=== PATIENT | male | born 1975 | race Caucasian/White ===

== ENCOUNTER 2017-08-03 18:51 | Inpatient (IN) | payer BC ==
[~2017-08-03] VITALS: Ht 180.3 cm; Wt 116.1 kg
[~2017-08-03 18:51] MED LIST: [UNRECOGNIZED DRUG - CODE] PO
[2017-08-03 19:53] LABS: BASOPHILS # (AUTO) 0.1 /CMM (0.0-0.2); BASOPHILS % (AUTO) 0.3 % (0.0-2.0); EOSINOPHILS # (AUTO) 0.1 /CMM (0.0-0.7); EOSINOPHILS % (AUTO) 0.4 % (0.0-6.0); HEMATOCRIT 38 % (39-51); HEMOGLOBIN 12.3 g/dL (13.5-17.5); LYMPHOCYTES # (AUTO) 3.5 /CMM (0.8-4.8); LYMPHOCYTES % (AUTO) 14.4 % (20.0-44.0); MEAN CORPUSCULAR HEMOGLOBIN 21 PG (26.0-33.0); MEAN CORPUSCULAR HGB CONC 33 g/dl (31.0-36.0); MEAN CORPUSCULAR VOLUME 63 fL (80-96); MONOCYTES # (AUTO) 1.4 /CMM (0.1-1.30); MONOCYTES % (AUTO) 5.8 % (2.0-12.0); NEUTROPHILS # (AUTO) 19.4 /CMM (1.8-8.9); NEUTROPHILS % (AUTO) 79.1 % (43.0-81.0); PLATELET COUNT (AUTO) 170 /CMM (150-450); RDW COEFFICIENT OF VARIATION 14.8 (11.5-15.0); WHITE BLOOD COUNT (AUTO) 24.5 K/uL (4.3-11.0)
[2017-08-03 19:58] LABS: APPEARANCE,URINE Cloudy (CLEAR); BILIRUBIN,URINE MODERATE (NEGATIVE); BLOOD, URINE Moderate Ery/uL (NEGATIVE); COLOR,URINE Other (YELLOW); KETONES,URINE 40 (NEGATIVE); LEUKOCYTE ESTERASE ,URINE Negative (NEGATIVE); NITRITE, URINE Positive (NEGATIVE); PROTEIN,URINE >=300 mg/dl (NEGATIVE); UGLUCOSE Negative (NEGATIVE)
[2017-08-03 19:59] LABS: CALCIUM, SERUM 9.2 mg/dL (8.5-10.1); CREATININE 1.2 mg/dL (0.6-1.3)
[2017-08-03] MEDS ORDERED: IV NS 0.9% 1,000 ML BAG IV ONE (20:00)
[2017-08-03 20:05] LABS: ALBUMIN 3.6 g/dL (3.4-5.0); BILIRUBIN,DIRECT 0.3 mg/dL (0.0-0.2); BILIRUBIN,TOTAL 1.1 mg/dL (0.2-1.0); TOTAL PROTEIN, SERUM 8.1 g/dL (6.4-8.2)
[2017-08-03 20:07] LABS: BACTERIA,URINE 2+ /HPF (None Seen); RBC,URINE 21-50 /HPF (0-2); SQUAMOUS EPITHELIAL CELL,UR Few /HPF (None Seen)
[2017-08-03] MEDS ORDERED: PIPERACILLIN /TAZOBACTAM 3.375 G in IV D5W 50 ML IV ONE (20:30)
[2017-08-03] MEDS ORDERED: PIPERACILLIN /TAZOBACTAM 3.375 G VIAL IV ONE (20:46)
[2017-08-03 20:47] LABS: EOSINOPHILS % (MANUAL) 2 % (0-4); LYMPHOCYTES % (MANUAL) 23 % (16-48); MONOCYTES % (MANUAL) 9 % (0-11.0); NEUTROPHILS % (MANUAL) 66 (42-76)
[2017-08-03] MEDS ORDERED: MAGNESIUM HYDROXIDE 30 ML UDC PO PRN (21:30)
[2017-08-03] MEDS ORDERED: MORPHINE SULFATE INJ 2 MG/ML DISP.SYRIN IV PRN (21:30)
[2017-08-03] MEDS ORDERED: LEVETIRACETAM (500MG) 500 MG in IV NS 0.9% 100 ML IV SCH (21:30)
[2017-08-03] MEDS ORDERED: MAG HYDROX/AL HYDROX/SIMETH 30 ML UDC PO PRN (21:30)
[2017-08-03] MEDS ORDERED: ONDANSETRON HCL/PF 4 MG/2 ML VIAL IVP PRN (21:30)
[2017-08-03] MEDS ORDERED: ACETAMINOPHEN 650 MG/SUPP.RECT RC PRN (21:30)
[2017-08-03 23:15] VITALS: BP 118/77
[2017-08-03] MEDS: IV NS 0.9% 1,000 ML IV PRN (23:49)
[2017-08-04] MEDS ORDERED: LEVETIRACETAM (500MG) 500 MG/5 ML VIAL IV ONE (00:08)
[2017-08-04] MEDS: ACETAMINOPHEN 325 MG TABLET PO PRN ×4 (03:36→21:38)
[2017-08-04 04:00] VITALS: BP 124/67
[2017-08-04] MEDS ORDERED: PIPERACILLIN /TAZOBACTAM 3.375 G VIAL IV ONE (04:14)
[2017-08-04] MEDS ORDERED: PIPERACILLIN /TAZOBACTAM 3.375 G in IV D5W 100 ML IV SCH (05:00)
[2017-08-04 07:24] LABS: CREATININE 0.9 mg/dL (0.6-1.3); MAGNESIUM 1.6 mg/dL (1.8-2.4); PHOSPHORUS 2.7 mg/dL (2.5-4.9); POTASSIUM 3.8 mmol/L (3.5-5.1)
[2017-08-04 07:25] LABS: EOSINOPHILS % (AUTO) 0.1 % (0.0-6.0); HEMATOCRIT 32 % (39-51); HEMOGLOBIN 10.2 g/dL (13.5-17.5); LYMPHOCYTES % (AUTO) 10.7 % (20.0-44.0); MEAN CORPUSCULAR HEMOGLOBIN 21 PG (26.0-33.0); MEAN CORPUSCULAR HGB CONC 32 g/dl (31.0-36.0); MEAN CORPUSCULAR VOLUME 64 fL (80-96); MONOCYTES # (AUTO) 0.7 /CMM (0.1-1.30); MONOCYTES % (AUTO) 3.7 % (2.0-12.0); NEUTROPHILS # (AUTO) 15.7 /CMM (1.8-8.9); NEUTROPHILS % (AUTO) 85.5 % (43.0-81.0); PLATELET COUNT (AUTO) 170 /CMM (150-450); RDW COEFFICIENT OF VARIATION 16.2 (11.5-15.0); RED BLOOD CELL COUNT(AUTO) 4.93 MIL/uL (4.5-6.0); WHITE BLOOD COUNT (AUTO) 18.4 K/uL (4.3-11.0)
[2017-08-04 08:00] VITALS: BP 122/70
[2017-08-04] MEDS ORDERED: LEVE500T9 PO (08:41)
[2017-08-04] MEDS: PANTOPRAZOLE 40 MG VIAL IV SCH (08:57)
[2017-08-04] MEDS ORDERED: LEVETIRACETAM (250 MG) 250 MG TABLET PO SCH (09:00)
[2017-08-04] MEDS: KEPPRA 500 MG PO SCH ×2 (09:15→20:37)
[2017-08-04] MEDS: Magnesium 1GM/D5W 100ML PREMIX 100 ML IV SCH ×3 (10:47→12:00)
[2017-08-04] MEDS ORDERED: PIPERACILLIN /TAZOBACTAM 3.375 G in IV D5W 50 ML IV SCH (12:00)
[2017-08-04] MEDS: PIPERACILLIN /TAZOBACTAM 3.375 G in IV D5W 50 ML IV SCH ×3 (14:29→23:50)
[2017-08-04] MEDS ORDERED: Magnesium 1GM/D5W 100ML PREMIX 100 ML IV SCH (15:30)
[2017-08-04] MEDS: IV NS 0.9% 1,000 ML IV PRN (15:32)
[2017-08-04 16:00] VITALS: BP 121/73
[2017-08-04 20:00] VITALS: BP 115/68
[2017-08-05] MEDS: PIPERACILLIN /TAZOBACTAM 3.375 G in IV D5W 50 ML IV SCH ×4 (05:36→23:10)
[2017-08-05 06:26] LABS: CALCIUM, SERUM 8.3 mg/dL (8.5-10.1); CREATININE 1.1 mg/dL (0.6-1.3); MAGNESIUM 2.1 mg/dL (1.8-2.4); PHOSPHORUS 2.2 mg/dL (2.5-4.9); POTASSIUM 3.7 mmol/L (3.5-5.1)
[2017-08-05 06:31] LABS: BASOPHILS # (AUTO) 0.1 /CMM (0.0-0.2); BASOPHILS % (AUTO) 0.3 % (0.0-2.0); EOSINOPHILS % (AUTO) 0.1 % (0.0-6.0); HEMATOCRIT 32 % (39-51); HEMOGLOBIN 10.1 g/dL (13.5-17.5); LYMPHOCYTES # (AUTO) 1.5 /CMM (0.8-4.8); LYMPHOCYTES % (AUTO) 7.2 % (20.0-44.0); MEAN CORPUSCULAR HEMOGLOBIN 20 PG (26.0-33.0); MEAN CORPUSCULAR HGB CONC 32 g/dl (31.0-36.0); MEAN CORPUSCULAR VOLUME 64 fL (80-96); MONOCYTES # (AUTO) 0.9 /CMM (0.1-1.30); MONOCYTES % (AUTO) 4.1 % (2.0-12.0); NEUTROPHILS # (AUTO) 18.4 /CMM (1.8-8.9); NEUTROPHILS % (AUTO) 88.3 % (43.0-81.0); PLATELET COUNT (AUTO) 167 /CMM (150-450); RDW COEFFICIENT OF VARIATION 16.1 (11.5-15.0); RED BLOOD CELL COUNT(AUTO) 4.92 MIL/uL (4.5-6.0); WHITE BLOOD COUNT (AUTO) 20.9 K/uL (4.3-11.0)
[2017-08-05 08:00] VITALS: BP 118/71
[2017-08-05 09:05] LABS: BAND % (MANUAL) 3 % (0.0-5.0); LYMPHOCYTES % (MANUAL) 2 % (16-48); MONOCYTES % (MANUAL) 3 % (0-11.0); NEUTROPHILS % (MANUAL) 92 (42-76)
[2017-08-05] MEDS: IV D5/ 0.9% NACL 1,000 ML IV PRN ×3 (09:14→23:11)
[2017-08-05] MEDS: PANTOPRAZOLE 40 MG VIAL IV SCH (09:14)
[2017-08-05] MEDS: KEPPRA 500 MG PO SCH ×2 (09:14→21:02)
[2017-08-05] MEDS ORDERED: DIATR MEGLU/DIATRIZOATE SODIUM 30 ML BOTTLE (GASTROGRAPHIN) ONE (09:16)
[2017-08-05] MEDS ORDERED: CT SWABBABLE VALVE TRANS SET 1 EA INFUS.SET MC ONE (10:28)
[2017-08-05] MEDS ORDERED: IOHEXOL-300 100 ML VIAL IV ONE (10:28)
[2017-08-05] MEDS ORDERED: IV NS 0.9% 250 ML IV ONE (10:28)
[2017-08-05] MEDS: ACETAMINOPHEN 325 MG TABLET PO PRN ×3 (10:44→21:33)
[2017-08-05] MEDS: METRONIDAZOLE 500MG/ NS 100ML 500 MG in PREMIX 1 EA IV SCH ×3 (11:18→23:10)
[2017-08-05] MEDS ORDERED: K PHOS NEUTRAL 250 MG TABLET PO ONE (12:30)
[2017-08-05 16:00] VITALS: BP 127/64
[2017-08-05 20:00] VITALS: BP 129/69
[2017-08-05] MEDS ORDERED: TEMAZEPAM 15 MG CAPSULE PO PRN (20:00)
[2017-08-06] VITALS: BP 117/68
[2017-08-06 04:00] VITALS: BP 128/76
[2017-08-06] MEDS: PIPERACILLIN /TAZOBACTAM 3.375 G in IV D5W 50 ML IV SCH ×3 (05:04→18:40)
[2017-08-06] MEDS: METRONIDAZOLE 500MG/ NS 100ML 500 MG in PREMIX 1 EA IV SCH ×4 (05:04→23:16)
[2017-08-06 06:34] LABS: BASOPHILS % (AUTO) 0.1 % (0.0-2.0); EOSINOPHILS % (AUTO) 0.2 % (0.0-6.0); HEMATOCRIT 30 % (39-51); HEMOGLOBIN 9.5 g/dL (13.5-17.5); LYMPHOCYTES # (AUTO) 1.7 /CMM (0.8-4.8); LYMPHOCYTES % (AUTO) 9.3 % (20.0-44.0); MEAN CORPUSCULAR HEMOGLOBIN 20 PG (26.0-33.0); MEAN CORPUSCULAR HGB CONC 31 g/dl (31.0-36.0); MEAN CORPUSCULAR VOLUME 64 fL (80-96); MONOCYTES # (AUTO) 0.9 /CMM (0.1-1.30); NEUTROPHILS # (AUTO) 15.7 /CMM (1.8-8.9); NEUTROPHILS % (AUTO) 85.4 % (43.0-81.0); PLATELET COUNT (AUTO) 180 /CMM (150-450); RDW COEFFICIENT OF VARIATION 16.1 (11.5-15.0); RED BLOOD CELL COUNT(AUTO) 4.76 MIL/uL (4.5-6.0); WHITE BLOOD COUNT (AUTO) 18.4 K/uL (4.3-11.0)
[2017-08-06 06:36] LABS: CALCIUM, SERUM 8.4 mg/dL (8.5-10.1); POTASSIUM 3.6 mmol/L (3.5-5.1)
[2017-08-06 08:00] VITALS: BP 122/71
[2017-08-06 08:17] LABS: EOSINOPHILS % (MANUAL) 2 % (0-4); LYMPHOCYTES % (MANUAL) 13 % (16-48); MONOCYTES % (MANUAL) 3 % (0-11.0); NEUTROPHILS % (MANUAL) 82 (42-76)
[2017-08-06] MEDS: KEPPRA 500 MG PO SCH ×2 (08:44→20:33)
[2017-08-06] MEDS: PANTOPRAZOLE 40 MG VIAL IV SCH (08:44)
[2017-08-06] MEDS ORDERED: MAG HYDROX/AL HYDROX/SIMETH 30 ML UDC PO PRN (10:00)
[2017-08-06] MEDS ORDERED: FUROSEMIDE 20 MG/2 ML VIAL IV ONE (10:00)
[2017-08-06] MEDS: SIMETHICONE 80 MG TAB.CHEW PO PRN ×2 (10:49→20:33)
[2017-08-06] MEDS ORDERED: LORAZEPAM INJ 2 MG/ML VIAL IV PRN (12:30)
[2017-08-06] MEDS ORDERED: diphenhydrAMINE HCL 25 MG CAPSULE PO PRN (12:30)
[2017-08-06 16:00] VITALS: BP 126/66
[2017-08-06 20:00] VITALS: BP 131/76
[2017-08-06] MEDS: ACETAMINOPHEN 325 MG TABLET PO PRN (21:40)
[2017-08-06] MEDS: IV D5/ 0.9% NACL 1,000 ML IV PRN (22:06)
[2017-08-07] MEDS: PIPERACILLIN /TAZOBACTAM 3.375 G in IV D5W 50 ML IV SCH ×5 (00:06→23:34)
[2017-08-07] MEDS: METRONIDAZOLE 500MG/ NS 100ML 500 MG in PREMIX 1 EA IV SCH ×3 (05:00→17:32)
[2017-08-07 07:10] LABS: BASOPHILS % (AUTO) 0.2 % (0.0-2.0); EOSINOPHILS # (AUTO) 0.2 /CMM (0.0-0.7); EOSINOPHILS % (AUTO) 1.5 % (0.0-6.0); HEMATOCRIT 28 % (39-51); HEMOGLOBIN 9.2 g/dL (13.5-17.5); LYMPHOCYTES # (AUTO) 1.5 /CMM (0.8-4.8); MEAN CORPUSCULAR HEMOGLOBIN 21 PG (26.0-33.0); MEAN CORPUSCULAR HGB CONC 33 g/dl (31.0-36.0); MEAN CORPUSCULAR VOLUME 63 fL (80-96); MONOCYTES # (AUTO) 0.8 /CMM (0.1-1.30); MONOCYTES % (AUTO) 5.3 % (2.0-12.0); NEUTROPHILS # (AUTO) 12.8 /CMM (1.8-8.9); PLATELET COUNT (AUTO) 200 /CMM (150-450); RDW COEFFICIENT OF VARIATION 15.7 (11.5-15.0); RED BLOOD CELL COUNT(AUTO) 4.44 MIL/uL (4.5-6.0); WHITE BLOOD COUNT (AUTO) 15.5 K/uL (4.3-11.0)
[2017-08-07 07:31] LABS: CREATININE 0.9 mg/dL (0.6-1.3); MAGNESIUM 1.7 mg/dL (1.8-2.4); PHOSPHORUS 3.1 mg/dL (2.5-4.9); POTASSIUM 3.1 mmol/L (3.5-5.1)
[2017-08-07 08:00] VITALS: BP 134/79
[2017-08-07] MEDS: KEPPRA 500 MG PO SCH ×2 (08:33→21:07)
[2017-08-07] MEDS: PANTOPRAZOLE 40 MG VIAL IV SCH (08:33)
[2017-08-07 09:32] LABS: BAND % (MANUAL) 1 % (0.0-5.0); EOSINOPHILS % (MANUAL) 4 % (0-4); LYMPHOCYTES % (MANUAL) 3 % (16-48); MONOCYTES % (MANUAL) 7 % (0-11.0); NEUTROPHILS % (MANUAL) 85 (42-76)
[2017-08-07] MEDS: Magnesium 1GM/D5W 100ML PREMIX 100 ML IV SCH ×2 (10:53→12:02)
[2017-08-07] MEDS: POTASSIUM CHLORIDE 20 MEQ TAB.PRT.SR PO SCH ×2 (10:54→12:02)
[2017-08-07 16:00] VITALS: BP 115/65
[2017-08-07 20:00] VITALS: BP 115/66
[2017-08-07] MEDS: IV D5/ 0.9% NACL 1,000 ML IV PRN (21:08)
[2017-08-08] MEDS: METRONIDAZOLE 500MG/ NS 100ML 500 MG in PREMIX 1 EA IV SCH ×5 (00:05→23:17)
[2017-08-08] MEDS: PIPERACILLIN /TAZOBACTAM 3.375 G in IV D5W 50 ML IV SCH ×4 (05:21→23:17)
[2017-08-08 06:58] LABS: BASOPHILS # (AUTO) 0.1 /CMM (0.0-0.2); BASOPHILS % (AUTO) 0.4 % (0.0-2.0); EOSINOPHILS # (AUTO) 0.1 /CMM (0.0-0.7); EOSINOPHILS % (AUTO) 0.6 % (0.0-6.0); HEMATOCRIT 27 % (39-51); HEMOGLOBIN 8.6 g/dL (13.5-17.5); LYMPHOCYTES # (AUTO) 2.2 /CMM (0.8-4.8); LYMPHOCYTES % (AUTO) 13.3 % (20.0-44.0); MEAN CORPUSCULAR HEMOGLOBIN 20 PG (26.0-33.0); MEAN CORPUSCULAR HGB CONC 32 g/dl (31.0-36.0); MEAN CORPUSCULAR VOLUME 63 fL (80-96); MONOCYTES # (AUTO) 1.3 /CMM (0.1-1.30); MONOCYTES % (AUTO) 7.9 % (2.0-12.0); NEUTROPHILS # (AUTO) 12.6 /CMM (1.8-8.9); NEUTROPHILS % (AUTO) 77.8 % (43.0-81.0); PLATELET COUNT (AUTO) 231 /CMM (150-450); RDW COEFFICIENT OF VARIATION 15.6 (11.5-15.0); RED BLOOD CELL COUNT(AUTO) 4.31 MIL/uL (4.5-6.0); WHITE BLOOD COUNT (AUTO) 16.3 K/uL (4.3-11.0)
[2017-08-08 08:00] VITALS: BP 127/75
[2017-08-08 08:13] LABS: CALCIUM, SERUM 7.6 mg/dL (8.5-10.1); CREATININE 0.9 mg/dL (0.6-1.3); MAGNESIUM 1.9 mg/dL (1.8-2.4)
[2017-08-08 08:39] LABS: POTASSIUM 3.5 mmol/L (3.5-5.1)
[2017-08-08] MEDS: PANTOPRAZOLE 40 MG VIAL IV SCH (08:50)
[2017-08-08] MEDS: IV D5/ 0.9% NACL 1,000 ML IV PRN ×2 (08:50→22:16)
[2017-08-08] MEDS: SIMETHICONE 80 MG TAB.CHEW PO PRN (08:50)
[2017-08-08] MEDS: KEPPRA 500 MG PO SCH ×2 (08:50→20:52)
[2017-08-08 16:00] VITALS: BP 125/68
[2017-08-08 20:00] VITALS: BP 121/64
[2017-08-09] MEDS: PIPERACILLIN /TAZOBACTAM 3.375 G in IV D5W 50 ML IV SCH (05:42)
[2017-08-09] MEDS: METRONIDAZOLE 500MG/ NS 100ML 500 MG in PREMIX 1 EA IV SCH (06:12)
[2017-08-09 06:56] LABS: BASOPHILS % (AUTO) 0.1 % (0.0-2.0); EOSINOPHILS # (AUTO) 0.1 /CMM (0.0-0.7); EOSINOPHILS % (AUTO) 0.6 % (0.0-6.0); HEMATOCRIT 28 % (39-51); HEMOGLOBIN 9.1 g/dL (13.5-17.5); LYMPHOCYTES % (AUTO) 12.8 % (20.0-44.0); MEAN CORPUSCULAR HEMOGLOBIN 20 PG (26.0-33.0); MEAN CORPUSCULAR HGB CONC 32 g/dl (31.0-36.0); MEAN CORPUSCULAR VOLUME 62 fL (80-96); MONOCYTES # (AUTO) 1.7 /CMM (0.1-1.30); MONOCYTES % (AUTO) 7.3 % (2.0-12.0); NEUTROPHILS # (AUTO) 18.6 /CMM (1.8-8.9); NEUTROPHILS % (AUTO) 79.2 % (43.0-81.0); PLATELET COUNT (AUTO) 312 /CMM (150-450); RDW COEFFICIENT OF VARIATION 15.9 (11.5-15.0); RED BLOOD CELL COUNT(AUTO) 4.54 MIL/uL (4.5-6.0); WHITE BLOOD COUNT (AUTO) 23.5 K/uL (4.3-11.0)
[2017-08-09 07:21] LABS: CALCIUM, SERUM 8.1 mg/dL (8.5-10.1); CREATININE 0.8 mg/dL (0.6-1.3); MAGNESIUM 1.9 mg/dL (1.8-2.4); PHOSPHORUS 3.6 mg/dL (2.5-4.9); POTASSIUM 3.1 mmol/L (3.5-5.1)
[2017-08-09 08:00] VITALS: BP 121/83
[2017-08-09] MEDS: PANTOPRAZOLE 40 MG VIAL IV SCH (09:15)
[2017-08-09] MEDS: KEPPRA 500 MG PO SCH (09:15)
[2017-08-09] MEDS ORDERED: POTASSIUM CHLORIDE 20 MEQ TAB.PRT.SR PO SCH (10:00)
[2017-08-09 10:56] LABS: BAND % (MANUAL) 2 % (0.0-5.0); LYMPHOCYTES % (MANUAL) 13 % (16-48); NEUTROPHILS % (MANUAL) 78 (42-76)
[2017-08-09 10:57] LABS: EOSINOPHILS % (MANUAL) 1 % (0-4); MONOCYTES % (MANUAL) 6 % (0-11.0)
== END 2017-08-09 11:30 | disposition left against medical advice (07) | DRG 392 ==
LOC: ER 19:04 → TELE 23:03 → MED 08-06 08:46
PROVIDERS: ADMIT Nurse Practitioner Acute Care; ATTEND Nurse Practitioner Acute Care
DX: K57.20 Diverticulitis of large intestine with perforation and abscess without bleeding (principal); K76.0 Fatty (change of) liver, not elsewhere classified; E83.42 Hypomagnesemia; K56.0 Paralytic ileus; G40.909 Epilepsy, unspecified, not intractable, without status epilepticus; M54.40 Lumbago with sciatica, unspecified side; G89.29 Other chronic pain; E66.9 Obesity, unspecified; Z68.35 Body mass index [BMI] 35.0-35.9, adult; F17.200 Nicotine dependence, unspecified, uncomplicated; D64.9 Anemia, unspecified; Z87.442 Personal history of urinary calculi; Z79.899 Other long term (current) drug therapy
CPT/HCPCS: 36415; 74018; 80048-TC; 80061-TC; 80076-TC; 81000-TC; 82962-TC; 83605-TC; 83690-TC; 83735-TC; 84100-TC; 85025-TC; 87040-TC; 87081-TC; 87086-TC; 93307-TC; A4216; A4606; C9113; J1940; J1953; J2270; J2543; J3475; J3490; J7030; J7042; J7050; J7060; Q9963; Q9967; Z7610